=== PATIENT | male | born 1985 | race Caucasian/White ===

== ENCOUNTER → 2024-01-14 18:25 | Outpatient (REF) | payer OTHER, SELFPAY | LOC: PAVMRI 18:25 | PROVIDERS: ATTENDING PHYSICIAN Nurse Practitioner Adult Health | DX: M54.50 Low back pain, unspecified (principal) | CPT/HCPCS: 72148 ==

== ENCOUNTER 2025-09-15 05:51 | Day surgery (SDC) | payer OTHER, SELFPAY ==
[2025-09-15] VITALS (8 sets, daily range): BP systolic 124–150; BP diastolic 73–86; BMI 25.8
[2025-09-15] MEDS: TYLENOL 1000 MG PO (06:20)
[2025-09-15] MEDS: NORMOSOL-R/PLASMALYTE-A 1000 IV (06:26)
--- NOTE | 2025-09-15 12:17 | W.IMMPOSTOP ---
Surgical Immed Post Op Note
-
Primary Surgeon: Ho Strickland MD
Assisting Surgeon: Adam Meier PA-C
Pre-op Diagnosis: left knee anterior cruciate ligament rupture
Post-op Diagnosis: left knee anterior cruciate ligament rupture
Procedure Performed: arthroscopic assisted left knee anterior cruciate ligament reconstruction with BTB autograft
Anesthesia Type: general with regional
Specimen / Cultures: none
Estimated Blood Loss: 25mL
Complications: none apparent
Operative Findings: intact menisci, ACL rupture
Tourniquet time: 124 minutes @ 250 mmHg
Implants: Arthrex BTB TightRope2, Biocomposite screws 7mm and [id number]; 4.75 mm Swivelock
Operative dictation #: [id number]
== END 2025-09-15 12:33 | disposition home or self-care (01) ==
LOC: SDS 05:51
PROVIDERS: ATTENDING PHYSICIAN Student in an Organized Health Care Education/Training Program
DX: S83.512A Sprain of anterior cruciate ligament of left knee, initial encounter (principal); W19.XXXA Unspecified fall, initial encounter; M25.862 Other specified joint disorders, left knee; M71.22 Synovial cyst of popliteal space [Baker], left knee
CPT/HCPCS: 29888; C1713